=== PATIENT | female | born 1955 | race Caucasian/White ===

== ENCOUNTER → 2017-02-15 | Day surgery (SDC) | payer BC ==
[~2017-02-15] MED LIST: ADVIL LIQUI-GE200 MG PO; AROMASIN25 MG PO; AVALIDE 300-251 TAB PO; CELEBREX PO; CELECOXIB200 MG PO; CLONIDINE TOP; DARVOCET-N 1001 TAB PO; DOXYCYCLINE; EFFEXOR PO; FISH OIL 1,0001 CAP PO; HYDROCHLOROTH12.5 MG PO; LISINOPRIL10 MG PO; LO-DOSE ASPIRIN81 M1 PO; OXYCODONE HCL5 MG PO; VITAMIN D 4001 UDTAB PO; ZOCOR PO; ZYRTEC10 M1 PO; [UNRECOGNIZED DRUG - OTHER] PO
--- NOTE | ~2017-02-15 | OR ---
Unit #: [id number] #: [id number] Patient: BAIRON ANN [id number] [address] [address] [id number] O MR#: [id number] NAME: BAIRON ANN. ROOM: Date of Procedure: 02/15/2017 Admission Date: 02/15/2017 Surgeon: Ivan Garcia M.D. : 1955 Attending Physician: Ivan Garcia M.D. Primary Care Physician: Sukh Lan M.D. OPERATIVE REPORT PREOPERATIVE DIAGNOSES Back pain, radiculopathy, spondylolisthesis, spinal stenosis, degenerative disk disease. POSTOPERATIVE DIAGNOSES Back pain, radiculopathy, spondylolisthesis, spinal stenosis, degenerative disk disease. PROCEDURE PERFORMED Lumbar epidural steroid injection with intravenous sedation and fluoroscopic guidance for needle localization. INDICATIONS FOR PROCEDURE The patient is a 61-year-old female with a 6-month history of worsening back and right lower extremity pain. She failed to settle with conservative treatment. Workup demonstrated L5-S1 anterolisthesis probably grade 2, spinal stenosis with facet disease and also mild stenosis at the L3-L4 level. Plan is for trial of epidural steroids based on history, pathology, and symptomatology. DESCRIPTION OF PROCEDURE The patient was placed in the seated position. Standard monitors were applied. 1 mg of Versed was given for sedation and anxiolysis, which were adequate. Vital signs remained stable. Sterile prep and drape then of the lumbar area was performed. The skin then at the L4-L5 level was localized with 1% lidocaine. An 18-gauge Hustead needle was then advanced via loss of resistance technique and fluoroscopic guidance in toward the epidural space. After confirming proper positioning with fluoroscopy and radiographic contrast, 80 mg of Depo-Medrol and 4 mL of 0.125% bupivacaine were deposited. The patient tolerated the procedure otherwise well and was discharged to the recovery room in stable condition. Dictated by... Alexy Garcia/dunial TD: 02/15/2017 11:39 JOB #: [id number] Unit #: [id number] #: [id number] Patient: BAIRON ANN OPERATIVE REPORT Page 1 of 1 X Ivan Garcia MD X PROCEDURE OPERATIVE NOTE
== END | disposition home or self-care (01) ==
LOC: CCSC 09:01
DX: M51.16 Intervertebral disc disorders with radiculopathy, lumbar region (principal); M43.17 Spondylolisthesis, lumbosacral region; M48.06 Spinal stenosis, lumbar region
CPT/HCPCS: J1040; J2250

== ENCOUNTER → 2017-03-01 | Day surgery (SDC) | payer BC ==
--- NOTE | ~2017-03-01 | OR ---
Unit #: [id number] #: [id number] Patient: BAIRON ANN [id number] [address] [address] [id number] O MR#: [id number] NAME: BAIRON ANN ROOM: Date of Procedure: 03/01/2017 Admission Date: 03/01/2017 Surgeon: Ivan Garcia M.D. : 1955 Attending Physician: Ivan Garcia M.D. Primary Care Physician: Sukh Lan M.D. OPERATIVE REPORT PREOPERATIVE DIAGNOSES Back pain, radiculopathy, spinal stenosis, spondylolisthesis, back pain, radiculopathy. POSTOPERATIVE DIAGNOSES Back pain, radiculopathy, spinal stenosis, spondylolisthesis, back pain, radiculopathy. PROCEDURE PERFORMED Lumbar epidural steroid injection with intravenous sedation and fluoroscopic guidance for needle localization. INDICATIONS FOR PROCEDURE The patient is a 61-year-old female, who presented with back and intermittent right lower extremity pain, which had been worsening over 6 months. She failed to settle with conservative treatment. Workup demonstrated significant spondylolisthesis with facet disease. The patient had the bilateral L5 nerve root at the L5-S1 level with moderate stenosis at L4-L5. The decision was made to give the patient a trial of epidural steroids. Initial injection did not result in substantial change in her pain symptoms. We are going to proceed with a second injection today. If this does not do any better, we may look towards transforaminal injection or surgical evaluation. DESCRIPTION OF PROCEDURE The patient was placed in a seated position. Standard monitors were applied. 1 mg Versed was given for sedation and anxiolysis, which were adequate. Vital signs remained stable. Sterile prep and drape then of lumbar area was performed. The skin then at the L4-L5 level was localized with 1% lidocaine. An 18-gauge Real Matter[place] needle was then advanced via loss of resistance technique and fluoroscopic guidance in toward the epidural space. After confirming proper positioning with fluoroscopy and radiographic contrast, 80 mg of Depo-Medrol and 4 mL of 0.125% bupivacaine were deposited. The patient tolerated the procedure otherwise well and was discharged to the recovery room in stable condition. Dictated by... Ivan Garcia M.D. LHP/kee Unit #: [id number] #: [id number] Patient: BAIRON ANN TD: 03/01/2017 13:12 JOB #: [id number] OPERATIVE REPORT Page 1 of 1 X Ivan Garcia MD X PROCEDURE OPERATIVE NOTE
== END | disposition home or self-care (01) ==
LOC: CCSC 09:21
DX: M43.16 Spondylolisthesis, lumbar region (principal); M48.06 Spinal stenosis, lumbar region; M53.86 Other specified dorsopathies, lumbar region; Z79.82 Long term (current) use of aspirin; Z79.1 Long term (current) use of non-steroidal anti-inflammatories (NSAID); Z79.899 Other long term (current) drug therapy
CPT/HCPCS: J1040; J2250